=== PATIENT | male | born 1975 | race Caucasian/White ===

== ENCOUNTER 2018-12-01 11:48 | Emergency (ER) | payer MEDICAID ==
[~2018-12-01] VITALS: Ht 185.4 cm; Wt 98.9 kg
[2018-12-01] MEDS ORDERED: NKM (11:59)
[2018-12-01 12:03] VITALS: BP 105/67
[2018-12-01] MEDS ORDERED: Ketorolac 30mg Inj IM ONE (12:30)
--- NOTE | 2018-12-01 12:37 | Emergency Room Report ---
History of Present Illness General Chief Complaint: Pain Source: Patient Present Illness HPI 43-year-old male presents to the emergency department complaining of 9 out of 10 severity pain localized to the right shoulder region x2 weeks with some radiation down the associated biceps. Patient also reports acute onset of 9 out of 10 severity pain to the bottom of the left heel x2 days. Patient denies appreciable trauma or fall he states he is right-hand dominant and that he regularly lifts heavy objects. Patient denies previous injuries to either extremities that he is currently complaining of. He denies fevers, chills, erythema, bruising, swelling or loss of gross motor movements or paresthesias. He states that the pain is made worse with walking and with raising his right arm. Patient states that he took 3 200 mg eekt-fpa-yexiwjf ibuprofen last night with minimal relief of his symptoms. Allergies: Coded Allergies: No Known Allergies (Unverified , 12/01/18) Patient History Past Medical History: see triage record Past Surgical History: none Pertinent Family History: none Reviewed Nursing Documentation: PMH: Agreed; PSxH: Agreed Nursing Documentation-PMH Past Medical History: No Stated History Review of Systems All Other Systems: negative except mentioned in HPI Physical Exam Vital Signs Date Time Temp Pulse Resp B/P (MAP) Pulse Ox O2 Delivery O2 Flow Rate FiO2 12/01/18 11:57 98.2 75 20 105/67 (80) 97 Room Air Sp02 EP Interpretation: reviewed, normal General Appearance: no apparent distress, alert, GCS 15, non-toxic Head: normocephalic, atraumatic Eyes: bilateral eye normal inspection, bilateral eye PERRL ENT: hearing grossly normal, normal voice Neck: full range of motion, tender lateral - Right trapezius Respiratory: lungs clear, normal breath sounds, speaking full sentences Cardiovascular #1: regular rate, rhythm, normal capillary refill Cardiovascular #2: 2+ radial (R), 2+ radial (L) Musculoskeletal: back normal, gait/station normal, normal range of motion, tender - Plantar aspect of the left heel, no joint instability no swelling no bruising no erythema no obvious deformities patient is ambulatory without assistance. Tenderness to palpation to the anterior lateral aspect of the right shoulder full range of motion without pain or clicking, no obvious step- off or dislocation. Pain upon passive raising of the arm above the 90 degree angle. Neurologic: alert, oriented x3, responsive, motor strength/tone normal, sensory intact, speech normal, grossly normal Psychiatric: judgement/insight normal Skin: normal color, no rash, warm/dry, well hydrated Medical Decision Making LYNN Attestation Dr. Gates is my supervising Physician whom patient management has been discussed with. Diagnostic Impression: Primary Impression: Shoulder pain, right Qualified Codes: M25.511 - Pain in right shoulder Additional Impression: Pain of left heel ER Course 43-year-old male presents to the emergency department complaining of 9 out of 10 severity pain localized to the right shoulder region x2 weeks with some radiation down the associated biceps. Patient also reports acute onset of 9 out of 10 severity pain to the bottom of the left heel x2 days. Patient denies appreciable trauma or fall he states he is right-hand dominant and that he regularly lifts heavy objects. Patient denies previous injuries to either extremities that he is currently complaining of. He denies fevers, chills, erythema, bruising, swelling or loss of gross motor movements or paresthesias. He states that the pain is made worse with walking and with raising his right arm. Patient states that he took 3 200 mg hofy-zhn-zrlxhhc ibuprofen last night with minimal relief of his symptoms. Ddx considered but are not limited to Fracture, dislocation, contusion, Sprain/ Strain/Spasm, or rotator cuff injury, Vital signs: are WNL, pt. is afebrile H&PE are most consistent with musculoskeletal injury will perform imaging to r/ o fractures/dislocations. ORDERS: - X-ray left heel 2 views as well as right shoulder 3 views- negative for fx, Dislocation, or significant soft tissue injury, per preliminary read in ED, and signed by LYNN Valle, my supervising physician has reviewed, and agrees with my interpretation. ED INTERVENTIONS: --15 mg Toradol IM --Right arm Sling applied by radio electronics technician. Pt. remains neurovascularly intact. DISCHARGE: At this time pt. is stable for d/c to home. Will provide printed patient care instructions, and any necessary prescriptions. Care plan and follow up instructions have been discussed with the patient prior to discharge. Other X-Ray Diagnostic Results Other X-Ray Diagnostic Results #1: X-Ray ordered: Right shoulder # of Views/Limited Vs Complete: 3 View Indication: Pain EP Interpretation: Yes LYNN Xray: Interpretation reviewed, by supervising MD, and agrees with findings. Interpretation: no dislocation, no soft tissue swelling, no fractures Impression: No acute disease Electronically Signed by: Mirella Valle PA-C Other X-Ray Diagnostic Results #2: X-Ray ordered: Left heel # of Views/Limited Vs Complete: 2 View Indication: Swelling EP Interpretation: No PA Xray: Interpretation reviewed, by supervising MD, and agrees with findings. Interpretation: no dislocation, no soft tissue swelling, no fractures Impression: No acute disease Electronically Signed by: Mirella Valle PA-C Last Vital Signs Date Time Temp Pulse Resp B/P (MAP) Pulse Ox O2 Delivery O2 Flow Rate FiO2 12/01/18 12:03 98.2 75 20 105/67 97 Room Air Status: improved Disposition: HOME, SELF-CARE Condition: Stable Scripts Naproxen* (NAPROXEN*) 500 Mg Tablet.dr 500 MG ORAL TWICE A DAY for 7 Days, #14 TAB Prov: Mirella Valle 12/01/18 Departure Forms: Return to Work Return to Work Date: Dec 04, 2018 Work Restrictions: No Heavy Lifting Other Restrictions: light duty. limited use of right arm. May return sooner if resolved. Return to Full Activity: Dec 08, 2018 Patient Instructions: Heel Spur, Shoulder Pain, [id number] Additional Instructions: Take medications as directed. Follow up with a PRIMARY CARE PROVIDER or CAGE OPERATOR in 3-5 days , even if your symptoms have resolved. If symptoms persist MRI may be required at the discretion of your PCP or Ortho Specialist. --Please review list of primary care clinics, if you do not already have a primary care provider who can give you an Orthopedic Referral. Return sooner to ED if new symptoms occur, or current symptoms become worse. - Please note that this Emergency Department Report was dictated using [employer]gent[employer]in[employer] engine firer/fireman technology software, occasionally this can lead to erroneous entry secondary to interpretation by the dictation equipment. Mirella Valle Dec 01, 2018 12:37
[2018-12-01] MEDS ORDERED: NAPROXEN500 M1 ORAL (13:13)
--- NOTE | 2018-12-01 14:40 | Diagnostic Imaging Report ---
Indication: Right shoulder pain Technique: 3 views of the right shoulder Comparison: none Findings: No acute fractures. No dislocations. The joint spaces are preserved. Impression: Negative
--- NOTE | 2018-12-01 14:43 | Diagnostic Imaging Report ---
Indication: Left heel pain Technique: 2 views of the left calcaneus Comparison: none Findings: There is a small plantar spur. No acute fractures. No dislocations. The joint spaces are preserved Impression: No acute process
== END 2018-12-01 13:34 | disposition home or self-care (01) ==
LOC: EMR 12:25
DX: M25.511 Pain in right shoulder (principal); M79.672 Pain in left foot
CPT/HCPCS: 73030; 73650; 96372; 99284; J1885

== ENCOUNTER 2018-12-14 18:32 | Emergency (ER) | payer MEDICAID ==
[~2018-12-14] VITALS: Ht 185.4 cm; Wt 96.6 kg
[~2018-12-14 18:32] MED LIST: NAPROXEN500 M1 ORAL; NKM
[2018-12-14 18:57] VITALS: BP 129/79
[2018-12-14] MEDS ORDERED: Ketorolac 30mg Inj IM ONE (19:30)
[2018-12-14] MEDS ORDERED: IBUPROFEN600 MG ORAL (20:14)
[2018-12-14] MEDS ORDERED: ROBAXIN-750750 MG PO (20:14)
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
[2018-12-14 20:25] VITALS: BP 129/79
--- NOTE | 2018-12-15 12:44 | Diagnostic Imaging Report ---
Indication: Back pain Comparison: None Findings: 3 views of the lumbar spine were obtained. There is narrowing of the L3-4 disc. Endplate spur noted in the superior endplate of the L4. Bones are osteopenic. No acute fracture seen. Sclerosis of the lower lumbar facets noted. IMPRESSION: Mild degenerative changes at the L3-4
--- NOTE | 2018-12-15 12:45 | Diagnostic Imaging Report ---
Indication: Neck Pain Findings: 3 views of the cervical spine were obtained. No acute fracture or malalignment identified. There is narrowing of the intervertebral discs throughout the cervical spine mild in degree. Mild endplate spurs are also demonstrated at multiple levels. There is no malalignment. The dens is intact. C1-2 alignment is normal. IMPRESSION: Mild degenerative disease
== END 2018-12-14 20:25 | disposition home or self-care (01) ==
LOC: EMR 20:25
DX: M54.5 Low back pain (principal); M54.2 Cervicalgia; G89.29 Other chronic pain
CPT/HCPCS: 72020; 72040; 96372; 99284; J1885